=== PATIENT | female | born 1975 | race Caucasian/White ===

== ENCOUNTER 2022-04-01 05:29 | Day surgery (SDC) | payer BC, SELFPAY ==
[2022-03-26 12:23] LABS: Hematocrit 39.3 % (37-47); Mean Corp Hgb Conc 33.1 g/dL (32-36); Mean Corpuscular Hgb 29.1 pg (27.0-32.0); Mean Corpuscular Volume 87.9 fL (81-99); Mean Platelet Vol. 11.6 fl (6.2-12.0); Platelet Count 312 K/mm3 (150-450); RBC Distribution Width CV 13.2 % (11.6-14.6); RBC Distribution Width SD 42.5 fl (35.1-43.9); Red Blood Count 4.47 M/mm3 (4.2-5.4); White Blood Count 9.9 K/mm3 (4.4-11.0)
[2022-03-26 12:54] LABS: Anion Gap 8 (5-15); BUN 12 mg/dL (7-18); BUN/Creat Ratio 12.7 RATIO (10-20); Calcium,Total 8.6 mg/dL (8.5-10.1); Chloride 107 mmol/L (98-107); Creatinine, Serum 0.95 mg/dL (0.55-1.02); EST Glomerular Filtration Rate 68 mL/min (>60); Est Glom Filt Rate - Afr Amer 82 mL/min (>60); Glucose 112 mg/dL (74-106); Magnesium 2.3 mg/dL (1.6-2.6); Potassium 3.4 mmol/L (3.5-5.1); Sodium Level 140 mmol/L (136-145); Thyroid Stim Hormone (TSH) 1.44 uIU/mL (0.358-3.74)
[2022-04-01] VITALS (15 sets, daily range): BP systolic 103–138; BP diastolic 54–91; PULSE 64–90; RESP 18; TEMP 35.9–36.9; O2SAT 92–98; BMI 39.8
[2022-04-01 06:03] LABS: Internal QC Validated? YES +Cl - CLEAR BKGD; Pregnancy, Urine Negative Negative
[2022-04-01] MEDS: Lactated Ringers 1,000 ML 15 ML IV (06:18)
[2022-04-01] MEDS: Magnesium 1 GM over 15 mins IV (06:19)
[2022-04-01 06:30] LABS: Bedside Glucose 91 mg/dL (74-106)
--- NOTE | 2022-04-01 06:54 | PCM.HP.BLA ---
History and Physical Date of Admission: 04/01/22 Chief complaint: Abnormal uterine bleeding History present illness: 47-year-old scheduled for robotic assisted total laparoscopic hysterectomy bilateral salpingectomy and cystoscopy for abnormal uterine bleeding. No medical changes since last seen. All questions answered and consent signed. Obstetric history: G2, P2 patient with a history of 2 vaginal deliveries Past medical history: Anxiety, hypothyroid, GERD Medications: Bisoprolol, bupropion, levothyroxine, Megace, pantoprazole Allergies: Penicillin, codeine Past surgical history: Cholecystectomy, D&C, ablation Social history: Denies smoking, alcohol use, drug use Family history: Denies history DVT or PE Review of systems: Besides above pertinent positives a full review of systems was performed and found to be negative Physical exam: Vitals: Blood pressure 136/84 pulse 71 respiratory rate 18 temperature 96.6 ?F SPO2 97% on room air General: Normal-appearing no acute distress HEENT: Normocephalic/atraumatic no cervical of adenopathy Cardiac/respiratory: No use of accessory muscles, nonlabored breathing Abdomen: Soft, nontender, nondistended Extremities: No peripheral edema normal peripheral pulses Psych: Normal affect normal demeanor nonpressured speech Labs: Urine test negative Assessment plan: 47-year-old for robotic assisted total laparoscopic hysterectomy and bilateral salpingectomy, cystoscopy for abnormal uterine bleeding. Patient educated on risk benefits alternatives of the procedure. Patient states understanding and wished to proceed. All questions were answered and consent was signed.
[2022-04-01] MEDS: Gabapentin 600 MG Tablet PO (07:01)
[2022-04-01] MEDS: Acetaminophen 500 MG Tablet 1000 MG PO (07:01)
[2022-04-01] MEDS: Cefazolin 2 GM in 0.9% Normal Saline 100 ML IV (07:24)
--- NOTE | 2022-04-01 08:40 | DCINST_ITS ---
Discharge Instructions Diet Discharge Diet: No restrictions Activity Discharge Activity: Return to Normal Activity, May Drive and May Shower May resume sexual activity in: 4-6 weeks Lifting Restrictions: No lifting over 25 pounds for 2 to 3 weeks Dressing / Incision Call your doctor if your incision/area has: Continuous Slow Oozing and Foul Smelling Discharge Call your doctor if you observe: Fever of 101 or Higher, Shortness of breath and Chest pain Follow Up Care Please Follow Up With: Reilly Yang MD When: 2 weeks postoperatively Test Results: Test results from this visit will be discussed in further detail at your follow- up appointment, if applicable. Discharge Plan Admission Attending Provider: Reilly Yang Primary Care Provider: Wiley Palm Discharge Orders/Prescriptions Prescriptions: No Action levothyroxine 50 MCG tablet 50 mcg PO DAILY bisoprolol-hydrochlorothiazide 5-6.25 mg Tablet 1 tab PO DAILY pantoprazole 40 mg Tablet,Delayed Release (Dr/Ec) 40 mg PO DAILY megestrol 40 mg Tablet 40 mg PO DAILY bupropion HCl 300 mg Tablet Extended Release 24 Hr 300 mg PO DAILY cholecalciferol (vitamin D3) [Vitamin D3] 125 mcg (5,000 unit) Tablet 125 mcg PO DAILY Other Ambulatory Orders: ,Urine (Routine) Timeframe: [id number] Facility: [facility] - Location: Laboratory Ordered By: Dr. Anthony Mathews Referrals / Follow Up: Wiley Palm MD [Primary Care Provider] - Disposition Disposition (needs filled in before D/C Order can be placed): Home, Self Care
--- NOTE | 2022-04-01 08:42 | PCM.OPRPT ---
Report of Operation Date of Procedure: 04/01/22 Pre-Operative Diagnosis: Abnormal uterine bleeding Post-Operative Diagnosis: Abnormal uterine bleeding, [place] uterine adhesions, tubo-ovarian adhesions, ovarian uterine adhesions Surgery/Procedure Performed:: Robotic assisted diagnostic laparoscopy lysis of adhesions Description of Surgical Findings:: Surgeon: Reilly Yang MD Anesthesia: General EBL: 10 cc Urine output: 500 cc IV fluids: 1000 cc Complications: None Specimen: None Findings: 12 cm uterus, pelvis with multiple sites of adhesion. Colonic to uterine adhesions from fundus to cervix filling entire posterior cul-de-sac. Right ovary with uterine to fallopian tube to pelvic sidewall adhesions, right ovary largely adhesed to sidewall. Right ureter visualized at the bifurcation of the common iliac, then disappears within the pelvic sidewall within the right ovary. Minimal manipulation of uterus could be performed with multiple adhesions. Lysis of adhesions was performed on majority of colonic to posterior uterine adhesions, lysis of adhesion performed on tubo uterine ovarian adhesions. All lysis of adhesions for greater than 30 minutes. Right ovary adhesions to pelvic sidewall not dissected. After lysis of adhesion rectum still with large amount of adhesions to posterior portion of uterus to cervix, cannot visualize colpotomy posteriorly or anteriorly based on adhesions. Based on these findings decided to stop procedure scheduled, hysterectomy. Floseal placed on portion of uterus and colon with color uterine adhesions. Good hemostasis was noted. Consent: Patient with abnormal uterine bleeding scheduled for robotic assisted total laparoscopic hysterectomy bilateral salpingectomy and cystoscopy. Patient understands risk of the procedure include but are not limited to visceral or vascular injury, prolonged hospitalization, blood loss and need for transfusion, reoperation. Patient state understanding and wished to proceed. All questions were answered and consent was signed. Procedure: Patient was brought back to the OR where general anesthesia was found to be adequate. 2 g of Ancef were given for infection prophylaxis. Patient was prepared and draped in a dorsolithotomy position with yellowfin stirrups. Weighted speculum was placed in the posterior aspect of the vagina and cervical dilators were used to dilate the cervix. Uterine manipulator was placed. Veress needle was inserted at the umbilicus and water safety test was passed. Abdomen was insufflated. 8 mm midline supraumbilical trocar was inserted under direct visualization. Laparoscope was inserted and above findings were noted. Bilateral lower quadrant 8 mm trocar was inserted under direct visualization. Left upper quadrant 8 mm trocar was inserted under direct visualization. Robot was docked. Using a vessel sealer and monopolar scissors lysis of adhesions was performed. Right fallopian tube to uterine and ovarian adhesions first dissected. Good hemostasis was noted. Colonic uterine adhesions carefully dissected using blunt dissection and sharp dissection. Dissection was performed from fundus to three quarters of the way to the cervix. But still with rectal uterine cervical adhesions and posterior cul-de-sac. Based on these findings lysis of adhesions was halted, abdomen was irrigated. Floseal was placed in the posterior cul-de-sac along the colon rectal uterine adhesions. Good hemostasis was noted. Abdomen was desufflated. Trochars were removed under direct visualization. Good hemostasis was noted. Trocar sites were closed in a subcutaneous fashion. Good hemostasis was noted. All counts were correct x2. Patient tolerated procedure well and was brought to recovery in stable condition.
[2022-04-01] MEDS: Ketorolac 30 MG/ML Syringe IV (09:27)
== END 2022-04-01 14:06 | disposition home or self-care (01) ==
LOC: SDC 05:30 → AC 05:31
PROVIDERS: Anesthesiology; PCP Family Medicine; Referring Provider Obstetrics & Gynecology; Visit Provider Obstetrics & Gynecology
PROC: 0UT90ZZ Resection of Uterus, Open Approach (ICD-10-PCS; CPT 49329; principal; 2022-04-01 07:10)
DX: N93.9 Abnormal uterine and vaginal bleeding, unspecified (principal); N73.6 Female pelvic peritoneal adhesions (postinfective); F32.A Depression, unspecified; K21.9 Gastro-esophageal reflux disease without esophagitis; I10 Essential (primary) hypertension; Z90.49 Acquired absence of other specified parts of digestive tract; E03.9 Hypothyroidism, unspecified
CPT/HCPCS: 49329; 36415; 80048; 81025; 82962; 83735; 84443; 85027; 86850; 86900; 86901; J7120; J2405; J3475